=== PATIENT | male | born 1960 | race Caucasian/White ===

== ENCOUNTER 2020-04-03 13:22 | Emergency (ER) | payer MEDICARE, OTHER ==
[~2020-04-03] VITALS: Ht 172.7 cm; Wt 72.7 kg
[2020-04-03] MEDS ORDERED: LIDOCAINE 1% INJ 20 ML 20 ML VIAL INJ STA (13:36)
[2020-04-03] MEDS ORDERED: LIDOCAINE 1% INJ 20 ML 20 ML VIAL ONE (13:37)
[2020-04-03] MEDS ORDERED: ceFAZolin INJECTION 1,000 MG in WATER (STERILE) FOR INJECTION 10 ML IV STA (13:38)
--- NOTE | 2020-04-03 13:52 | ED Upper Extremity ---
General Chief Complaint: Upper Extremity Stated Complaint: LT THUMB PARTIALLY SEVERED Nursing Triage Note: Pt arrived by private vehcile from home. Pt was alert, oriented x 4 and ambulatory. Pt was splitting wood and he cut/injured his left thumb. Pt went inside and drove right here (5-6 miles away) onset 15 minutes prior to arrival. Pt has feeling in left thumb and is able to bend it. Pt states pain is a 4. Pt has no PMH and does not take any medications. Pt is allergic to Demerol. Pt drinks 3 beers daily and chews tobacco. Pt had a coffee at [phone] and 1 beer at 1100. Nursing Sepsis Screen: No Definite Risk Source: patient History of Present Illness Date Seen by Provider: Apr 03, 2020 Time Seen by Provider: 13:27 Initial Comments 59-year-old male presents with crush injury to left thumb. He was splitting wood and caught his thumb between the wood splitter and another piece of wood. He is left hand dominant. He still has some movement and sensation of the distal part of his left thumb. He reports this happened just prior to arrival. He states he has not had anything to eat today. He has had some coffee around 9:30 and a beer around 11 AM. States his last tetanus was 2 years ago. Allergies and Home Medications Allergies Coded Allergies: meperidine (Verified Allergy, Unknown, 04/03/20) Patient Home Medication List Home Medication List Reviewed: Yes Review of Systems Constitutional: no symptoms reported EENTM: no symptoms reported Respiratory: no symptoms reported Cardiovascular: no symptoms reported Gastrointestinal: no symptoms reported Genitourinary: no symptoms reported Musculoskeletal: see HPI Skin: see HPI Psychiatric/Neurological: See HPI Past Bkhgxgo-Zkkucn-Xsrjdm Hx Past Med/Social Hx: Reviewed Nursing Past Med/Soc Hx Patient Social History Alcohol Use: Regular Use Number of Drinks Today: 3 Alcohol Beverage of Choice: Beer Recreational Drug Use: No Smoking Status: Current Everyday Smoker Type Used: Smokeless Tobacco 2nd Hand Smoke Exposure: Yes Recent Foreign Travel: No Contact w/Someone Who Travel: No Recent Infectious Disease Expo: No Physical Abuse: No Sexual Abuse: No Mistreated: No Fear: No Past Medical History Surgeries: No Respiratory: No Cardiac: No Neurological: No Genitourinary: No Gastrointestinal: No Musculoskeletal: No Endocrine: No HEENT: No Cancer: No Psychosocial: No Physical Exam Vital Signs Vital Signs - First Documented 04/03/20 13:41 Temp 36.4 Pulse 76 Resp 18 B/P (MAP) 132/86 (101) Pulse Ox 94 O2 Delivery Room Air Capillary Refill : Less Than 3 Seconds Height, Weight, BMI Height: '" Weight: lbs. oz. kg; 24.00 BMI Method: General Appearance: WD/WN, mild distress HEENT: PERRL/EOMI Cardiovascular: normal peripheral pulses, regular rate, rhythm Respiratory: chest non-tender, lungs clear, normal breath sounds Gastrointestinal: normal bowel sounds, soft, no pulsatile mass Hand: deformity (crush injury and deformed distal portion of the left thumb), ecchymosis (bruising to tissue of left thumb), laceration (complex laceration of left thumb ), limited ROM (flexion of DIP left thumb but unable to extend at DIP), nail injury (exposed nailbed and ) Neurologic/Tendon: sensory deficit, other (crush injury to left thumb with complex laceration and exposed nailbed. intact sensation to light touch on volar aspect of thumb, decreased sensation on lateral aspect of the thumb where the laceration is located. able to flex but not extend DIP joint of left thumb) Neurologic/Psychiatric: alert, normal mood/affect, oriented x 3 Skin: normal color, warm/dry Progress/Results/Core Measures Results/Orders My Orders Orders - AMARJIT BONILLA MD Finger(S) (04/03/20 13:36) Lidocaine 1% Inj 20 Ml (Xylocaine 1% Inj (04/03/20 13:36) Lidocaine 1% Inj 20 Ml (Xylocaine 1% Inj (04/03/20 13:37) Cefazolin Injection (Ancef Injection) (04/03/20 13:38) Ed Iv/Invasive Line Start (04/03/20 13:38) Vital Signs/I&O 04/03/20 13:41 Temp 36.4 Pulse 76 Resp 18 B/P (MAP) 132/86 (101) Pulse Ox 94 O2 Delivery Room Air Blood Pressure Mean: 101 Progress Progress Note #1: Progress Note Wound was examined and with him having some sensation and movement still to the injured area will place a digital block and obtain x-rays to determine the extent of fracture. Also with this being his left hand dominant hand will check with the nearest trauma location for a hand surgeon. There is no orthopedic coverage that [facility] today so will check with [facility] as that is the next closest trauma center that would have hand coverage. Using 1% plain lidocaine a digital block was placed after the initial exam. A total of 6 % mL of 1% plain lidocaine was injected. Progress Note #2: Time: 14:08 Progress Note At 1355 I placed a call to [facility]. They connected me with Dr. Miller at the ED for [facility]. At 1408 He accepted the transfer but did want me to speak with the plastic surgeon on-call, Dr. Rivera. [address] Rivera and updated him about the pt. He stated that he would not be the primary for the patient but that he could see him after he is brought to the ED at [facility]. Will send a face sheet to Dr. Rivera so he has infor mation for the patient. Prior to transfer he did get 1 gram of Ancef IV and had soaked and flushed the thumb with sterile water and chlorhexidine surgical soap. The wound edges were reapproximated as best as possible into anatomic position and then secured with a damp dressing using gauze and kerlix. Diagnostic Imaging Diagonstic Imaging: Xray Plain Films/CT/US/NM/MRI: hand Comments NAME: BRYANT RICH MED REC#: [id number] PT STATUS: REG ER : 1960 PHYSICIAN: AMARJIT BONILLA MD ADMIT DATE: 04/03/20/ER FS Draft Date of Exam:04/03/20 FINGER(S) INDICATION: Caught thumb in wood splinter, crush inj left thumb. TECHNIQUE: 3 views left thumb, 1:35 PM. CORRELATION STUDY: None FINDINGS: There is a comminuted, multipart fracture through the majority of the distal phalanx of the thumb. The articular base does appear to be maintained. There is a somewhat more focal longitudinally oriented fracture through the mid and distal aspect. The lateral segment is displaced nearly the width of this fracture line. Extensive soft tissue defects through the mid and distal aspect of the thumb as well. No definitive foreign body. The remaining osseous structures otherwise appear to be intact. Mild degenerative changes through the interphalangeal joints. IMPRESSION: 1. Multipart comminuted and displaced fractures through the majority of the distal phalanx of the thumb. Extensive enlarged soft tissue defect is also present. Dictated on workstation # [id number] Dict: 04/03/20 1350 Trans: 04/03/20 1353 YIFAN [id number] Interpreted by: OLYA AMADOR DO Electronically signed by: Departure Impression Primary Impression: Displaced fracture of distal phalanx of left thumb, initial encounter for open fracture Additional Impression: Crushing injury of left thumb, initial encounter Disposition: XFER SHT-TRM HOSP Condition: Stable Transfer Transfer Reason: Exceeds level of care Time Spoke to Accepting Phy: 14:08 Transfer Progress Notes D/w Dr. Miller from ED and he accepted pt for transfer but would like me to speak to Dr. Rivera with Plastics for Hand trauma as well. [address] Rivera and he states he will see the patient but that the pt will need to go to [facility] and be seen and evaluated in ED and before any surgery he would need Covid testing as well. Pt is negative on Covid Screening questions. Transfer Facility: [facility] Method of Transfer: Private Vehicle Departure-Patient Inst. Referrals: NO,LOCAL PHYSICIAN (PCP/Family) Primary Care Physician AMARJIT BONILLA MD Apr 03, 2020 13:52
[2020-04-03 14:38] VITALS: BP 135/74
--- NOTE | 2020-04-03 14:53 | NUR ---
Dr. Samson wrapped left thumb after cleaning the laceration with gauze wrap and surgical tape.
--- NOTE | 2020-04-03 14:53 | NUR ---
IV was left in and wrapped with Coban.
--- NOTE | 2020-04-03 15:01 | NUR ---
Pt was alert, oriented x 4, and ambulatory. Pt understands instructions to go to ED at [facility] and to not eat or drink or chew. Pt was given packet. Pt was given assistance with getting his bibs off. Pt had all belongings. Pt left at this time.
== END 2020-04-03 15:01 | disposition short-term general hospital (02) ==
LOC: EDUNIT# 13:22 → ER FS 13:24
DX: S62.522A Displaced fracture of distal phalanx of left thumb, initial encounter for closed fracture (principal); F17.290 Nicotine dependence, other tobacco product, uncomplicated; Z88.5 Allergy status to narcotic agent; W23.1XXA Caught, crushed, jammed, or pinched between stationary objects, initial encounter
CPT/HCPCS: 64450; 73140

== ENCOUNTER 2022-07-10 11:50 | Emergency (ER) | payer MEDICARE ==
[~2022-07-10] VITALS: Ht 172 cm; Wt 70.0 kg
[2022-07-10 12:05] LABS: BASOPHILS # (AUTO) 0.1 10^3/uL (0.0-0.1); BASOPHILS % (AUTO) 2 % (0-10); EOSINOPHILS # (AUTO) 0.1 10^3/uL (0.0-0.3); EOSINOPHILS % (AUTO) 2 % (0-10); HEMATOCRIT 44 % (40-54); LYMPHOCYTES # (AUTO) 1.9 10^3/uL (1.0-4.0); LYMPHOCYTES % (AUTO) 30 % (12-44); MEAN CORPUSCULAR HEMOGLOBIN 29 pg (25-34); MEAN CORPUSCULAR HGB CONC 34 g/dL (32-36); MEAN CORPUSCULAR VOLUME 86 fL (80-99); MEAN PLATELET VOLUME 9.8 fL (9.0-12.2); MONOCYTES # (AUTO) 0.8 10^3/uL (0.0-1.0); MONOCYTES % (AUTO) 12 % (0-12); NEUTROPHILS # (AUTO) 3.4 10^3/uL (1.8-7.8); NEUTROPHILS % (AUTO) 54 % (42-75); PLATELET COUNT 207 10^3/uL (130-400); WHITE BLOOD COUNT 6.3 10^3/uL (4.3-11.0)
--- NOTE | 2022-07-10 12:09 | ED Chest Pain ---
General Chief Complaint: Chest Pain Stated Complaint: CHEST PAIN Nursing Triage Note: Patient has been brought to ER by EMS with cc of chest pain. He reports that he had a cup of coffee and sitting down when he had pain across his lower chest. The pain comes and goes - at times the pain is zero and up to a 4/10 at times. The pain started about 0830 this morning. He called EMS for transport to ER for evaluation. Source: patient, EMS History of Present Illness Date Seen by Provider: Jul 10, 2022 Time Seen by Provider: 11:51 Initial Comments 62-year-old male presenting with complaints of a band of pain that went across his lower chest bilaterally. He states that the pain is coming and going and started around 830 this morning. He was just sitting having a cup of coffee when the pain started. He denies any nausea, vomiting, abdominal pain, increased cough, fever, chills, recent fall or injury. He does have a history of COPD but does not feel like he is more short of breath or coughing more than usual. He denies any history of high blood pressure or cardiac disease. The pain became more constant around 11 AM and he called EMS to be evaluated. EMS reported they did not see any acute ST elevation or ischemic changes on their EKG. He was given 324 mg of aspirin as well as a sublingual nitroglycerin. He reported that his pain seemed to be better after medications. However he had another episode of chest pain just prior to arriving in the ED. Timing/Duration: 4-6 hours Severity/Quality: moderate, aching Location: substernal Radiation: other (bilateral lower chest) Activities at Onset: rest (sitting in chair drinking his morning coffee) Prior CP/Workup: no prior chest pain, no prior cardiac workup ASA po GEOLOGICAL SPECIALIST: Yes NTG SL GEOLOGICAL SPECIALIST: Yes Associated Symptoms: No abdominal pain, No back pain, No diaphoresis, No dizziness, No edema, No fatigue, No fever/chills, No headache, No heartburn, No nausea/vomiting, No rash; shortness of breath (chronic and no worse than usual); No swelling/lump in chest, No syncope, No weakness Allergies and Home Medications Allergies Coded Allergies: meperidine (Verified Allergy, Unknown, 04/03/20) Patient Home Medication List Home Medication List Reviewed: Yes Review of Systems Review of Systems Constitutional: No chills, No dizziness, No fever EENTM: No Symptoms Reported Respiratory: See HPI (chronic cough and shortness of breath with COPD hx but no worse than usual. Coughing up some phlegm) Cardiovascular: See HPI Gastrointestinal: Denies Nausea, Denies Vomiting Genitourinary: No Symptoms Reported Musculoskeletal: no symptoms reported Skin: No change in color, No rash Psychiatric/Neurological: Denies Numbness, Denies Paresthesia Endocrine: No Symptoms Reported Past Fgbdoyn-Ybzpof-Ryhlix Hx Patient Social History Tobacco Use?: No Use of E-Cig and/or Vaping dev: No Substance use?: No Alcohol Use?: Yes Alcohol type: Beer Alcohol Frequency: Several times a month Past Medical History Surgery/Hospitalization HX: COPD Surgeries: No Respiratory: No Cardiac: No Neurological: No Genitourinary: No Gastrointestinal: No Musculoskeletal: No Endocrine: No HEENT: No Cancer: No Psychosocial: No Physical Exam Vital Signs Vital Signs - First Documented 07/10/22 07/10/22 11:57 11:59 Temp 35.6 Pulse 85 Resp 16 B/P (MAP) 160/91 (114) Pulse Ox 96 O2 Delivery Room Air Capillary Refill : Height, Weight, BMI Height: '" Weight: lbs. oz. kg; 23.00 BMI Method: General Appearance: No Apparent Distress, WD/WN HEENT: PERRL/EOMI, Pharynx Normal Neck: Full Range of Motion, Normal Inspection, Non Tender, Supple Respiratory: Chest Non Tender, Lungs Clear, Normal Breath Sounds, No Accessory Muscle Use, No Respiratory Distress Cardiovascular: Regular Rate, Rhythm, Normal Peripheral Pulses Gastrointestinal: Normal Bowel Sounds, No Pulsatile Mass, Non Tender, Soft Rectal: Deferred Extremity: Normal Capillary Refill, Normal Inspection, No Pedal Edema Neurologic/Psychiatric: Alert, Oriented x3, medical imaging tech II-XII Norm as Tested Skin: Normal Color, Warm/Dry; No Rash Progress/Results/Core Measures Results/Orders Lab Results Laboratory Tests Test 07/10/22 11:55 Range/Units White Blood Count 6.3 4.3-11.0 10^3/uL Red Blood Count 5.10 4.30-5.52 10^6/uL Hemoglobin 15.0 13.3-17.7 g/dL Hematocrit 44 40-54 % Mean Corpuscular Volume 86 80-99 fL Mean Corpuscular Hemoglobin 29 25-34 pg Mean Corpuscular Hemoglobin Concent 34 32-36 g/dL Red Cell Distribution Width 13.5 10.0-14.5 % Platelet Count 207 130-400 10^3/uL Mean Platelet Volume 9.8 9.0-12.2 fL Immature Granulocyte % (Auto) 0 % Neutrophils (%) (Auto) 54 42-75 % Lymphocytes (%) (Auto) 30 12-44 % Monocytes (%) (Auto) 12 0-12 % Eosinophils (%) (Auto) 2 0-10 % Basophils (%) (Auto) 2 0-10 % Neutrophils # (Auto) 3.4 1.8-7.8 10^3/uL Lymphocytes # (Auto) 1.9 1.0-4.0 10^3/uL Monocytes # (Auto) 0.8 0.0-1.0 10^3/uL Eosinophils # (Auto) 0.1 0.0-0.3 10^3/uL Basophils # (Auto) 0.1 0.0-0.1 10^3/uL Immature Granulocyte # (Auto) 0.0 0.0-0.1 10^3/uL Prothrombin Time 12.6 12.2-14.7 SEC INR Comment 0.9 0.8-1.4 Activated Partial Thromboplast Time 28 24-35 SEC Sodium Level 136 135-145 MMOL/L Potassium Level 4.5 3.6-5.0 MMOL/L Chloride Level 100 98-107 MMOL/L Carbon Dioxide Level 28 21-32 MMOL/L Anion Gap 8 5-14 MMOL/L Blood Urea Nitrogen 9 7-18 MG/DL Creatinine 0.94 0.60-1.30 MG/DL Estimat Glomerular Filtration Rate 91 BUN/Creatinine Ratio 10 Glucose Level 103 70-105 MG/DL Calcium Level 8.7 8.5-10.1 MG/DL Corrected Calcium 8.5 8.5-10.1 MG/DL Total Bilirubin 0.5 0.1-1.0 MG/DL Aspartate Amino Transf (AST/SGOT) 18 5-34 U/L Alanine Aminotransferase (ALT/SGPT) 17 0-55 U/L Alkaline Phosphatase 94 40-136 U/L Troponin I < 0.30 <0.30 NG/ML Pro-B-Type Natriuretic Peptide 33.5 <125.0 PG/ML Total Protein 6.7 6.4-8.2 GM/DL Albumin 4.2 3.2-4.5 GM/DL Lipase 29 8-78 U/L My Orders Orders - AMARJIT BONILLA MD Cbc With Automated Diff (07/10/22 11:54) Chest 1 View Ap/Pa Only (07/10/22 11:54) Ekg Tracing (07/10/22 11:54) Comprehensive Metabolic Panel (07/10/22 11:54) Protime With Inr (07/10/22 11:54) Partial Thromboplastin Time (07/10/22 11:54) O2 (07/10/22 11:54) Monitor-Rhythm Ecg Trace Only (07/10/22 11:54) Ed Iv/Invasive Line Start (07/10/22 11:54) Lipase (07/10/22 11:54) Troponin I Fs (07/10/22 11:54) Probnp Fs (07/10/22 11:54) Methylprednisolone Sod Succ (Solu-Medrol (07/10/22 12:30) Vital Signs/I&O 07/10/22 07/10/22 07/10/22 11:57 11:59 13:18 Temp 35.6 36.2 Pulse 85 71 Resp 16 15 B/P (MAP) 160/91 (114) 155/84 Pulse Ox 96 97 O2 Delivery Room Air Room Air Blood Pressure Mean: 114 Progress Progress Note #1: Progress Note Potential life-threatening conditions of myocardial infarction, congestive heart failure, lung mass, pleural effusion, aortic aneurysm. Will evaluate with placing him on cardiac telemetry monitoring to watch his heart rate and rhythm. Initial heart rate in the 70s with a sinus rhythm and no ectopy or ischemic changes. Obtain electrocardiogram for further evaluation of his heart rate and rhythm. Chest x-ray to look for structural abnormalities or other reasons for his complaints of pain. Check labs with CBC, chemistry, coags, cardiac enzymes. Progress Note #2: Progress Note On his cardiac telemetry monitoring patient remained in a sinus rhythm without ectopy or ST elevation. He has had no further pain here in the emergency department. He did receive the 125 mg of Solu-Medrol IV in case any of this was a COPD component. Counseled patient on his electrocardiogram not showing any signs of heart attack and my personal interpretation and review of his 1 view chest x-ray was clear without pneumonia, effusion, mass. His CBC was stable without acute significant abnormality to account for his pain. His chemistry panel was also negative for any acute abnormality to account for his pain. His liver enzymes and lipase were normal as well as his troponin was less than 0.3 after 4 hours of pain. By now I would expect to have seen an increase in his troponin if this was pain from a myocardial infarction. His blood pressure has improved as he was resting in the bed. He was down to 140/78 when I was reviewing the results with him. Counseled to follow-up with clinic in he has seen provider out [facility] previously so encouraged to go back to the clinic. Have him follow-up about his blood pressures as they may need to start him on medication but is not high enough that I would start a blood pressure medicine from the emergency department. Counseled on follow-up and return precautions. All questions were answered and the patient was comfortable going home. He was aware of return precautions if he had new or worsening symptoms to be seen again. He does state that he has been under extra stress and anxiety recently and thinks that that may be contributing to his symptoms. Initial ECG Impression Date: Jul 10, 2022 Initial ECG Impression Time: 11:55 Initial ECG Rate: 71 Initial ECG Rhythm: Normal Sinus Initial ECG Comparisson: No Previous ECG Available Comment Personal interpretation and review of his electrocardiogram she has a heart rate of 71 bpm and a normal sinus rhythm. VT interval [address] elevation. QT interval 367 ms with a QTc interval 389 ms. He has no prior tracings for comparison. Diagnostic Imaging Diagonstic Imaging: Xray Plain Films/CT/US/NM/MRI: chest Comments [facility] [place] NAME: BRYANT RICH [facility] REC#: [id number] PT STATUS: REG ER : 1960 PHYSICIAN: AMARJIT BONILLA MD ADMIT DATE: 07/10/22/ER FS Signed Date of Exam:07/10/22 CHEST 1 VIEW AP/PA ONLY CHEST 1 VIEW AP/PA ONLY Indication: Chest pain. Comparison: None available. Findings: No focal airspace disease in the visualized lungs. No pleural effusion or pneumothorax. Normal cardiomediastinal silhouette. Impression: 1. No acute cardiopulmonary process by portable radiography. Dictated by: Dictated on workstation # [id number] Dict: 07/10/22 1207 Trans: 07/10/22 1216 [facility] [id number] Interpreted by: JARETT RODRIGEZ MD Electronically signed by: JARETT RODRIGEZ MD 07/10/22 1216 Reviewed: Reviewed by Me (I reviewed the radiologist report on the 1 view CXR and agree that he had no acute process on the imaging. ) Departure Impression Primary Impression: Atypical chest pain Additional Impression: High blood pressure Qualified Codes: I10 - Essential (primary) hypertension Disposition: HOME, SELF-CARE Condition: Stable Departure-Patient Inst. Decision time for Depature: 12:53 Referrals: NO,LOCAL PHYSICIAN (PCP) Primary Care Physician [facility] Patient Instructions: High Blood Pressure ED, Chest Pain, Adult ED, Lowering Your Risk of Heart Disease Add. Discharge Instructions: Your tests to look at your heart looked ok today and not seeing signs of heart attack or heart damage. Your blood pressure is slightly elevated so you should follow up with a primary care provider and may need to be on medicine for your blood pressure. There are several organs and body parts that sit close together and can contribute to chest pain/discomfort. When you follow up with clinic they may order additional testing to look into your blood pressure and heart in more detail. If you have worsening symptoms or more concerns then you can always return for repeat evaluation, but certainly follow up with and establish care with a prov ider to help with your health. All discharge instructions reviewed with patient and/or family. Voiced understanding. AMARJIT BONILLA MD Jul 10, 2022 12:09
--- NOTE | 2022-07-10 12:18 | Diagnostic Imaging Report ---
CHEST 1 VIEW AP/PA ONLY Indication: Chest pain. Comparison: None available. Findings: No focal airspace disease in the visualized lungs. No pleural effusion or pneumothorax. Normal cardiomediastinal silhouette. Impression: 1. No acute cardiopulmonary process by portable radiography. Dictated by: Dictated on workstation # [id number]
[2022-07-10 12:21] LABS: INR 0.9 (0.8-1.4); PROTHROMBIN TIME PATIENT 12.6 SEC (12.2-14.7)
[2022-07-10 12:26] LABS: ALBUMIN 4.2 GM/DL (3.2-4.5); BILIRUBIN,TOTAL 0.5 MG/DL (0.1-1.0); CALCIUM 8.7 MG/DL (8.5-10.1); CREATININE SERUM 0.94 MG/DL (0.60-1.30); POTASSIUM 4.5 MMOL/L (3.6-5.0); TOTAL PROTEIN 6.7 GM/DL (6.4-8.2)
[2022-07-10] MEDS ORDERED: methylPREDNISolone 125 MG (Solu-MEDROL) VIAL IVP STA (12:30)
[2022-07-10 13:18] VITALS: BP 155/84
== END 2022-07-10 13:18 | disposition home or self-care (01) ==
LOC: EDUNIT# 11:50 → ER FS 11:51
DX: R07.89 Other chest pain (principal); I10 Essential (primary) hypertension; J44.9 Chronic obstructive pulmonary disease, unspecified
CPT/HCPCS: 36415; 71045; 80053; 83690; 83880; 84484; 85025; 85610; 85730; 93005